=== PATIENT | male | born 1960 | race Caucasian/White ===

== ENCOUNTER 2019-12-14 18:58 | Outpatient (REF) | payer OTHER, SELFPAY ==
[2019-12-14 21:55] LABS: ALT 45 U/L (16-63); AST 28 U/L (15-37); Albumin 4.6 g/dL (3.4-5.0); Alkaline Phosphatase 51 U/L (46-116); Anion Gap 8.6 mmol/L (3-11); BUN 18 mg/dL (7-18); Bilirubin, Total 0.3 mg/dL (0.2-1.0); CO2 30.4 mmol/L (21.0-32.0); CREATININE 0.85 mg/dL (0.70-1.30); Calcium 9.4 mg/dL (8.5-10.1); Chloride 101 mmol/L (98-107); Glucose 105 mg/dL (74-106); Potassium 4.5 mmol/L (3.5-5.1); Sodium 140 mmol/L (136-145); Total Protein 7.6 g/dL (6.4-8.2)
[2019-12-18 10:37] LABS: HIV-1/2 Ag & Ab Screen Negative (Negative)
[2019-12-18 10:38] LABS: Syphilis Serology (RPR) Negative (Negative)
[2019-12-18 12:07] LABS: HBs Antibody, Quant >1000.0 mIU/mL (See Note); Hep B Surface Ab Positive (See Note); Hepatitis B Core Antibody Negative (Negative); Hepatitis B Surface Antigen Negative (Negative); Hepatitis C Ab w Rflx HCV PCR Negative (Negative)
[2019-12-18 14:38] LABS: Chlamydia Result Negative (Negative); GC Result Negative (Negative)
== END 2019-12-14 19:18 ==
LOC: LBN 18:58
PROVIDERS: PCP Family Medicine; Visit Provider Nurse Practitioner Family
DX: Z72.51 High risk heterosexual behavior (principal)
CPT/HCPCS: 80053; 86704; 86706; 86803; 87340; 87389; 87491; 87591; 86592

== ENCOUNTER 2020-01-03 09:22 | Outpatient (CLI) | payer OTHER, SELFPAY ==
[2020-01-05 17:06] LABS: Patient Race White; SARS-CoV-2 RNA Undetected (Undetected); SARS-CoV-2 Specimen Source Nasopharynx
== END 2020-01-03 09:42 ==
PROVIDERS: PCP Family Medicine; Visit Provider Family Medicine
DX: Z11.59 Encounter for screening for other viral diseases (principal)
CPT/HCPCS: U0003

== ENCOUNTER 2020-02-09 02:07 | Outpatient (CLI) | payer OTHER, SELFPAY ==
[2020-02-11 16:08] LABS: Syphilis Total Ab w/Reflex Nonreactive (Nonreactive)
[2020-02-12 14:18] LABS: HIV-1/2 Ag & Ab Screen Negative (Negative)
[2020-02-22 17:16] LABS: Hep A Total Ab w Rflx IgM Negative (Negative)
== END 2020-02-09 02:27 ==
PROVIDERS: PCP Family Medicine; Visit Provider Internal Medicine Infectious Disease
DX: Z11.4 Encounter for screening for human immunodeficiency virus [HIV] (principal); Z20.2 Contact with and (suspected) exposure to infections with a predominantly sexual mode of transmission
CPT/HCPCS: 36415; 86709; 87389; 86780